=== PATIENT | female | born 1935 | race Caucasian/White ===

== ENCOUNTER 2017-03-28 22:57 | Inpatient (IN) | payer MEDICARE ==
[2017-03-29] MEDS ORDERED: ONDANSETRON PF 4 MG/2 ML VIAL. IV ×2 (01:30→16:15)
[2017-03-29] MEDS ORDERED: fentaNYL PF VIAL 100 MCG/2 ML VIAL IV (01:30)
[2017-03-29] MEDS: CIPROFLOXACIN 400MG PREMIX 200 ML IV (05:37)
[2017-03-29] MEDS: LACTOBACILLUS RHAMNOSUS GG 1 CAPSULE. PO ×2 (09:00→20:44)
[2017-03-29 09:03] LABS: ADD MAN DIFF? NO
[2017-03-29 09:10] LABS: BASO % 1 % (0-3); EOS # 0.1 x10^3/uL (0.0-0.7); EOS % 2 % (0-3); HEMATOCRIT 35.1 % (36.0-47.0); HEMOGLOBIN 11.8 g/dL (12.0-15.5); LYMPH # 0.8 x10^3/uL (1.0-4.8); LYMPH % 21 % (24-48); MEAN CORPUSCULAR HEMOGLOBIN 32 pg (25-35); MEAN CORPUSCULAR HGB CONC 34 g/dL (31-37); MEAN CORPUSCULAR VOLUME 97 fL (79-100); MONO # 0.6 x10^3/uL (0.0-1.1); MONO % 15 % (0-9); NEUT # 2.2 x10^3uL (1.8-7.7); NEUT % 61 % (31-73); PLATELET COUNT 77 x10^3/uL (140-400); RED BLOOD COUNT 3.64 x10^6/uL (3.50-5.40); RED CELL DISTRIBUTION WIDTH 13.4 % (11.5-14.5); WHITE BLOOD COUNT 3.7 x10^3/uL (4.0-11.0)
[2017-03-29 09:43] LABS: ALBUMIN 2.9 g/dL (3.4-5.0); ALBUMIN/GLOBULIN RATIO 0.7 (1.0-1.7); ALK PHOS 48 U/L (46-116); ALT (SGPT) 9 U/L (14-59); ANION GAP 8 (6-14); AST (SGOT) 18 U/L (15-37); BLOOD UREA NITROGEN 24 mg/dL (7-20); BUN/CREATININE RATIO 22 (6-20); CALCIUM 8.7 mg/dL (8.5-10.1); CARBON DIOXIDE 29 mmol/L (21-32); CHLORIDE 101 mmol/L (98-107); CREATININE 1.1 mg/dL (0.6-1.0); GFR 47.8; GLUCOSE 89 mg/dL (70-99); POTASSIUM 4.3 mmol/L (3.5-5.1); SODIUM 138 mmol/L (136-145); TOTAL BILIRUBIN 0.4 mg/dL (0.2-1.0); TOTAL PROTEIN 6.9 g/dL (6.4-8.2)
[2017-03-29 10:03] LABS: CHOLESTEROL 185 mg/dL (0-200); HDLC 71 mg/dL (40-60); LDLC 94 mg/dL (0-100); NON-HDL CHOLESTEROL 114 mg/dL (0-129); TRIGLYCERIDES 98 mg/dL (0-150); VLDLC 20 mg/dL (0-40)
[2017-03-29 10:30] LABS: CHOLESTEROL/HDL RATIO 2.6
[2017-03-29] MEDS ORDERED: CONTRAST GIVEN MC (10:30)
[2017-03-29 10:34] LABS: TROPONINI 0.269 ng/mL (0.000-0.055)
[2017-03-29] MEDS: IV NORMAL SALINE 1000ML BAG 1,000 ML IV ×2 (10:42→21:54)
[2017-03-29] MEDS: IOHEXOL 300 MG/ML 100ML VIAL. IV ×2 (11:16→11:30)
[2017-03-29 11:38] LABS: INFLUENZA A PATIENT NEGATIVE (NEGATIVE); INFLUENZA B PATIENT NEGATIVE (NEGATIVE); OBC FLU VALID
[2017-03-29] MEDS: ACETAMINOPHEN 325 MG TABLET. PO (13:46)
[2017-03-29] MEDS ORDERED: cefTRIAXone IV Push 1 GM VIAL. IVP (16:00)
[2017-03-29] MEDS ORDERED: MORPHINE SULFATE 2 MG/ML DISP.SYRIN. IV (16:15)
[2017-03-29] MEDS ORDERED: ACETAMINOPHEN 325 MG TABLET. PO (16:15)
[2017-03-29] MEDS ORDERED: hydrALAZINE 20 MG/ML VIAL. IVP (16:15)
[2017-03-29] MEDS: FLU VACC QS2017-18 (36MOS+)/PF 0.5 ML SYRINGE. VAX IM (16:37)
[2017-03-29] MEDS: METOPROLOL TART IMMED RELEASE 25 MG TABLET. PO (16:37)
[2017-03-29 16:46] LABS: FOLATE 10.11 ng/ml (3.2-20.0)
[2017-03-29 18:57] LABS: BILIRUBIN,URINE NEGATIVE (NEG); CLARITY,URINE CLEAR; COLOR,URINE YELLOW; GLUCOSE,URINE NEGATIVE (NEG); NITRITE,URINE NEGATIVE (NEG); PH,URINE 5.5; PROTEIN,URINE NEGATIVE (NEG-TRACE); UROBILINOGEN,URINE 0.2 mg/dL (0.2 mg/dL)
[2017-03-29 19:19] LABS: BACTERIA,URINE 0 /HPF (0-FEW); RBC,URINE 0 /HPF (0-2); SQUAMOUS EPITHELIAL CELL,UR FEW /LPF; WBC,URINE 0 /HPF (0-4)
[2017-03-30 05:22] LABS: ADD MAN DIFF? NO
[2017-03-30 05:40] LABS: BASO % 1 % (0-3); EOS # 0.2 x10^3/uL (0.0-0.7); EOS % 6 % (0-3); HEMATOCRIT 35.1 % (36.0-47.0); HEMOGLOBIN 11.8 g/dL (12.0-15.5); LYMPH # 0.9 x10^3/uL (1.0-4.8); LYMPH % 30 % (24-48); MEAN CORPUSCULAR HEMOGLOBIN 33 pg (25-35); MEAN CORPUSCULAR HGB CONC 34 g/dL (31-37); MEAN CORPUSCULAR VOLUME 96 fL (79-100); MONO # 0.4 x10^3/uL (0.0-1.1); MONO % 13 % (0-9); NEUT # 1.5 x10^3uL (1.8-7.7); NEUT % 51 % (31-73); PLATELET COUNT 84 x10^3/uL (140-400); RED BLOOD COUNT 3.64 x10^6/uL (3.50-5.40); RED CELL DISTRIBUTION WIDTH 13.8 % (11.5-14.5)
[2017-03-30 05:53] LABS: INR 1.3 (0.8-1.1); PARTIAL THROMBOPLASTIN TIME 38 SEC (24-38); PROTHROMBIN TIME PATIENT 15.3 SEC (11.7-14.0)
[2017-03-30 06:04] LABS: ANION GAP 5 (6-14); BLOOD UREA NITROGEN 18 mg/dL (7-20); CALCIUM 8.4 mg/dL (8.5-10.1); CARBON DIOXIDE 31 mmol/L (21-32); CHLORIDE 102 mmol/L (98-107); GFR 53.3; GLUCOSE 98 mg/dL (70-99); POTASSIUM 3.8 mmol/L (3.5-5.1); SODIUM 138 mmol/L (136-145)
[2017-03-30 08:36] LABS: VITAMIN-B12 213 pg/mL (247-911)
[2017-03-30] MEDS: METOPROLOL TART IMMED RELEASE 25 MG TABLET. PO ×2 (09:02→21:36)
[2017-03-30] MEDS: LACTOBACILLUS RHAMNOSUS GG 1 CAPSULE. PO ×2 (09:02→21:34)
[2017-03-30] MEDS: ASPIRIN ENTERIC COATED 81 MG TABLET.DR. PO (09:03)
[2017-03-30] MEDS: IV NORMAL SALINE 1000ML BAG 1,000 ML IV (09:51)
[2017-03-30] MEDS: traMADol 50 MG TABLET PO ×2 (10:21→17:11)
[2017-03-30] MEDS: CYANOCOBALAMIN (VITAMIN B-12) 1,000 MCG TABLET. PO (13:16)
[2017-03-30] MEDS: ATORVASTATIN CALCIUM 10 MG TABLET. PO (21:36)
[2017-03-31] MEDS: diphenhydrAMINE HCL 25 MG CAPSULE PO ×3 (01:16→14:55)
[2017-03-31 06:41] LABS: ADD MAN DIFF? NO
[2017-03-31 07:12] LABS: BASO % 1 % (0-3); EOS # 0.3 x10^3/uL (0.0-0.7); EOS % 10 % (0-3); HEMATOCRIT 34.9 % (36.0-47.0); HEMOGLOBIN 11.7 g/dL (12.0-15.5); LYMPH # 0.9 x10^3/uL (1.0-4.8); LYMPH % 32 % (24-48); MEAN CORPUSCULAR HEMOGLOBIN 32 pg (25-35); MEAN CORPUSCULAR HGB CONC 34 g/dL (31-37); MEAN CORPUSCULAR VOLUME 96 fL (79-100); MONO # 0.3 x10^3/uL (0.0-1.1); MONO % 11 % (0-9); NEUT # 1.3 x10^3uL (1.8-7.7); NEUT % 45 % (31-73); PLATELET COUNT 99 x10^3/uL (140-400); RED BLOOD COUNT 3.63 x10^6/uL (3.50-5.40); RED CELL DISTRIBUTION WIDTH 13.2 % (11.5-14.5); WHITE BLOOD COUNT 2.9 x10^3/uL (4.0-11.0)
[2017-03-31 07:20] LABS: FIBRINOGEN 109 mg/dL (200-440)
[2017-03-31 08:38] LABS: % SAT IRON 42 % (15-34); IRON,SERUM 71 ug/dL (50-170)
[2017-03-31 08:52] LABS: FERRITIN 270 ng/mL (8-252)
[2017-03-31] MEDS: REGADENOSON 0.4 MG/5 ML DISP.SYRIN. IV (10:38)
[2017-03-31] MEDS: ASPIRIN ENTERIC COATED 81 MG TABLET.DR. PO (12:27)
[2017-03-31] MEDS: LACTOBACILLUS RHAMNOSUS GG 1 CAPSULE. PO (12:27)
[2017-03-31] MEDS: METOPROLOL TART IMMED RELEASE 25 MG TABLET. PO (12:27)
[2017-03-31] MEDS: CYANOCOBALAMIN (VITAMIN B-12) 1,000 MCG TABLET. PO (12:30)
[2017-03-31] MEDS: DOCUSATE SODIUM 100 MG CAPSULE. PO (12:30)
[2017-03-31 18:11] LABS: HCV ANTIBODY <0.1 s/co ratio (0.0-0.9); HEP A IGM ABDY Negative (Negative); HEP B SURFACE AG Negative (Negative)
[2017-04-02 09:42] LABS: FOLATE 7.08 ng/ml (3.2-20.0)
== END 2017-03-31 19:45 | disposition home or self-care (01) | DRG 281 ==
LOC: 2 NORTH 22:57
DX: I71.4 Abdominal aortic aneurysm, without rupture (principal); I21.4 Non-ST elevation (NSTEMI) myocardial infarction; D61.818 Other pancytopenia; J20.8 Acute bronchitis due to other specified organisms; F03.90 Unspecified dementia, unspecified severity, without behavioral disturbance, psychotic disturbance, mood disturbance, and anxiety; I73.9 Peripheral vascular disease, unspecified; Z85.3 Personal history of malignant neoplasm of breast; Z86.79 Personal history of other diseases of the circulatory system; Z87.891 Personal history of nicotine dependence; Z90.12 Acquired absence of left breast and nipple
CPT/HCPCS: 36415; 71275; 74174; 78452; 80048; 80053; 80061; 80074; 81001; 82607; 82728; 82746; 83540; 83550; 84484; 85025; 85384; 85610; 85730; 86644; 86645; 86663; 86664; 87804; 87804-59; 90686; 93017; 93306; 96374; 96375; 96376; 97162-GP; 97166-GO; A9500; J0744; J2060; J2785; J7030; Q0163; Q9967